=== PATIENT | female | born 1980 | race Two or more races ===

== ENCOUNTER → 2024-06-21 | Emergency (ER) | payer BC ==
[~2024-06-21] VITALS: Ht 177.8 cm; Wt 81.6 kg
[~2024-06-21] MED LIST: LACTOBACILLUS ACIDOPHILUS 1 CAP CAP PO ONE; LACTOBACILLUS ACIDOPHILUS 1 CAP CAP PO STA; ONDANSETRON HCL 2 MG/ML VIAL IV STA; ONDANSETRON HCL 2 MG/ML VIAL ONE
== END | disposition home or self-care (01) ==
LOC: ER 07:55
DX: A05.9 Bacterial foodborne intoxication, unspecified (principal)